=== PATIENT | female | born 1955 | race Caucasian/White ===

== ENCOUNTER → 2016-06-06 | Outpatient (CLI) | payer BC ==
[~2016-06-06] MED LIST: ASPIRIN PO; BENZONATATE PO; LEVAQUIN750 M1 PO; LOSARTAN-HCTZ1 EACH PO; MELOXICAM15 MG PO; MOTRIN400 MG; NO MEDICATIONS
--- NOTE | ~2016-06-06 | US37 ---
[facility] A Service of [facility] & [facility] RADIOLOGY TEXT RESULTS PATIENT: ARSLAN GEE LOCATION: SNIV : 55 UNIT #: [id number] AGE: [address]: Tiff Russell MD SEX: F ORDER DR: [id number] [address] [address] [id number] O MR#: [id number] Acc #: [id number] NAME: ARSLAN GEE : 1955 SEX: F STUDY DATE/TIME: 06/06/2016 13:46 UNIT: SNIV ROOM: STUDY DESCRIPTION: US Carotid W/Doppler Bilateral Attending Physician: Tiff Russell M.D. Referring Physician: Tiff Russell M.D. Ordering Physician: Tiff Russell M.D. Primary Care Physician: Tiff Russell M.D. MEDICAL IMAGING REPORT This report is preliminary unless electronic signature is present. EXAM Carotid duplex scan, 06/06/2016. HISTORY Blurred vision, vertigo. FINDINGS The right common carotid artery has no significant plaque. There is only a small amount of heterogeneous plaque in the right carotid bulb which extends up into the proximal internal carotid artery. Peak systolic velocity in the mid right internal carotid artery is 92 cm/sec, with an end diastolic velocity of 31 cm/sec. The ICA:CCA ratio on the right is 1.5. Peak systolic velocity in the right external carotid artery is 100 cm/sec. The right vertebral artery is patent with antegrade flow. The left common carotid artery has no plaque. There is only a small amount of heterogeneous plaque in the left carotid bulb. The left internal carotid artery is very tortuous, but does not appear stenotic. Peak systolic velocity in the distal left internal carotid artery is 168 cm/sec, with an end diastolic velocity of 61 cm/sec. the ICA:CCA ratio on the left is 2.6. Peak systolic velocity in the left external carotid artery is 65 cm/sec. The left vertebral artery is patent with antegrade flow. Incidental node is made of a heterogeneous thyroid nodule in the left thyroid lobe, which measures 1.4 x 1.29 x 1.6 cm. IMPRESSION Small amount of plaque, but no significant stenosis (less than 50%) in the right internal carotid artery. There are elevated velocities in the left internal carotid artery, consistent with 50% to 69% stenosis, but the elevated velocities appear to be due to tortuosity rather than significant STS. [facility] A Service of [facility] & [facility] RADIOLOGY TEXT RESULTS PATIENT: ARSLAN GEE LOCATION: [facility] : 55 UNIT #: [id number] AGE: [address]: Tiff Russell MD SEX: F ORDER DR: stenosis. No significant stenosis of the external carotid arteries on either side. Patent vertebral arteries bilaterally with antegrade flow. 1.6-cm left thyroid nodule. Dictated by... Sim Andino M.D. THIS IS AN ELECTRONICALLY VERIFIED REPORT Sim Andino M.D. at 06/07/2016 7:43 AM KELSEY/nita TD: 06/06/2016 16:56 JOB #: [id number] MEDICAL IMAGING REPORT Page 1 of 1
--- NOTE | ~2016-06-06 | MR17 ---
[facility] A Service [facility] RADIOLOGY TEXT RESULTS PATIENT: ARSLAN GEE LOCATION: SNIV : 55 UNIT #: [id number] AGE: [address]: Tiff Russell MD SEX: F ORDER DR: [id number] [place] [id number] O MR#: [id number] Acc #: [id number] NAME: ARSLAN GEE : 1955 SEX: F STUDY DATE/TIME: 06/06/2016 15:14 UNIT: SNIV ROOM: STUDY DESCRIPTION: MR Brain WWo Contrast Attending Physician: Tiff Russell M.D. Referring Physician: Tiff Russell M.D. Ordering Physician: Tiff Russell M.D. Primary Care Physician: Tiff Russell M.D. MRI CENTER REPORT This report is preliminary unless electronic signature is present. EXAM Brain MRI with and without contrast. DATE 06/06/2016 PROCEDURE Routine brain MRI with and without contrast. COMPARISON None CLINICAL HISTORY 2-week history of headache and dizziness and nausea with presyncope. FINDINGS The brain is structurally normal. There is no restricted diffusion. There is no evidence of acute or chronic hemorrhage. There is no hydrocephalus or extraaxial fluid collection. Bone marrow signal is normal. Brain parenchymal signal is normal. Normal flow voids are seen in the cerebral vessels. The extracranial soft tissues are unremarkable. Postcontrast images show no evidence of intracranial mass or abnormal enhancement. IMPRESSION Normal brain MRI with and without contrast. Dictated by... Emre Farooq M.D. [facility] A Service [facility] RADIOLOGY TEXT RESULTS PATIENT: ARSLAN GEE LOCATION: [facility] : 55 UNIT #: [id number] AGE: [address]: Tiff Russell MD SEX: F ORDER DR: THIS IS AN ELECTRONICALLY VERIFIED REPORT Emre Farooq M.D. at 06/08/2016 4:52 PM TEV/qingw TD: 06/08/2016 10:24 JOB #: [id number] MRI CENTER REPORT Page 1 of 1
--- NOTE | ~2016-06-06 | MR122 ---
[facility] A Service of [facility] RADIOLOGY TEXT RESULTS PATIENT: ARSLAN GEE LOCATION: [facility] : 55 UNIT #: [id number] AGE: [address]: Tiff Russell MD SEX: F ORDER DR: [id number] [address] [address] [id number] O MR#: [id number] Acc #: [id number] NAME: ARSLAN GEE : 1955 SEX: F STUDY DATE/TIME: 06/06/2016 15:05 UNIT: SNIV ROOM: STUDY DESCRIPTION: MR MRA Head Wo Contrast Attending Physician: Tiff Russell M.D. Referring Physician: Tiff Russell M.D. Ordering Physician: Tiff Russell M.D. Primary Care Physician: Tiff Russell M.D. MRI CENTER REPORT This report is preliminary unless electronic signature is present. EXAM Head MRA, 06/06/2016 PROCEDURE Axial [id number] head MRA with three-dimensional reformats. COMPARISON None CLINICAL HISTORY 2-week history of dizziness, headaches, nausea and presyncope. FINDINGS Both internal carotid AND vertebral arteries and the basilar artery are patent. There is a type left posterior cerebral origin. There is no evidence of intracranial aneurysm or flow-limiting stenosis and there is symmetric vascularity in the anterior, middle and posterior cerebral distributions. IMPRESSION Normal head MRA. Dictated by... Emre Farooq M.D. THIS IS AN ELECTRONICALLY VERIFIED REPORT Emre Farooq M.D. at 06/08/2016 4:51 PM VINCENT/agata TD: 06/08/2016 12:02 JOB #: [id number] [facility] A Service of [facility] RADIOLOGY TEXT RESULTS PATIENT: ARSLAN GEE LOCATION: [facility] : 55 UNIT #: [id number] AGE: [address]: Tiff Russell MD SEX: F ORDER DR: MRI CENTER REPORT Page 1 of 1
[2016-06-06 16:10] LABS: POC - CREATININE 1.05 mg/dL (0.44-1.03)
== END | disposition home or self-care (01) ==
LOC: SNIV 13:05
PROVIDERS: Internal Medicine
DX: R51 Headache (principal); R42 Dizziness and giddiness; H53.8 Other visual disturbances; I65.21 Occlusion and stenosis of right carotid artery; E04.1 Nontoxic single thyroid nodule
CPT/HCPCS: 70544; 70553; 82565; 93880; A9581

== ENCOUNTER → 2016-10-26 | Outpatient (CLI) | payer BC ==
--- NOTE | ~2016-10-26 | BD1 ---
[facility] A Service of [facility] & [facility] RADIOLOGY TEXT RESULTS PATIENT: ARSLAN GEE LOCATION: [facility] : 55 UNIT #: [id number] AGE: [address]: Tiff Russell MD SEX: F ORDER DR: [id number] [address] [address] [id number] O MR#: [id number] Acc #: [id number] NAME: ARSLAN GEE : 1955 SEX: F STUDY DATE/TIME: 10/26/2016 8:42 UNIT: [facility] ROOM: STUDY DESCRIPTION: BD Dexa Bone Dens 1+ Site Attending Physician: Tiff Russell M.D. Referring Physician: Tiff Russell M.D. Ordering Physician: Tiff Russell M.D. Primary Care Physician: Tiff Russell M.D. MEDICAL IMAGING REPORT This report is preliminary unless electronic signature is present. EXAM Bone density, spine and hip, 10/26/2016. HISTORY Screening. Smoker 50 years. Current smoker. FINDINGS Bone density scanning performed upper 4 lumbar vertebral segments and both proximal femurs in 200-pound, 61[age]2-year-old female. No comparisons. L1-L4: Bone mineral density 0.853 g/cm2 for T-score 2.7 standard deviations below mean for reference population normal young individuals and a Z-score 2.3 standard deviations below mean for age-match population. Left femur: Proximal total femoral density 0.919 g/cm2 for T-score 0.7 standard deviations below mean for reference population normal young individuals and Z-score 0.3 standard deviations below mean for age-match population. Left femoral neck bone mineral density 0.704 g/cm2 for T-score 2.4 standard deviations below mean for reference population normal young individuals and a Z-score 1.7 standard deviations below the mean for age-match population. Right proximal femur total bone mineral density 0.884 g/cm2 for T-score 1 standard deviation below mean for a reference population normal young individuals and Z-score 0.6 standard deviations below mean for age-matched population. In the right femoral neck, the bone mineral density is 0.724 g/cm2 for T-score 2.3 standard deviation below mean for a reference population normal young individuals and Z-score of 1.5 standard deviations below mean for age-matched population. IMPRESSION 1. Osteoporosis in the upper 4 lumbar vertebral segments overall. [facility] A Service of [facility] RADIOLOGY TEXT RESULTS PATIENT: ARSLAN GEE LOCATION: [facility] : 55 UNIT #: [id number] AGE: [address]: Tiff Russell MD SEX: F ORDER DR: Patient is felt to be at significantly increased risk for fracture. Treatment options may be considered. Continued surveillance is recommended. Dictated by... Antonio Marie M.D. THIS IS AN ELECTRONICALLY VERIFIED REPORT Antonio Marie M.D. at 10/26/2016 2:30 PM Madeleine TD: 10/26/2016 13:20 JOB #: [id number] MEDICAL IMAGING REPORT Page 1 of 1
--- NOTE | ~2016-10-26 | MY30 ---
[facility] A Service of [facility] RADIOLOGY TEXT RESULTS PATIENT: ARSLAN GEE LOCATION: [facility] : 55 UNIT #: [id number] AGE: [address]: Tiff Russell MD SEX: F ORDER DR: [id number] [address] [address] [id number] O MR#: [id number] Acc #: [id number] NAME: ARSLAN GEE : 1955 SEX: F STUDY DATE/TIME: 10/26/2016 8:55 UNIT: [facility] ROOM: STUDY DESCRIPTION: MY SCREEN ALMA BILAT DIGITAL Attending Physician: Tiff Russell M.D. Referring Physician: Tiff Russell M.D. Ordering Physician: Tiff Rusesll M.D. Primary Care Physician: Tiff Russell M.D. MEDICAL IMAGING REPORT This report is preliminary unless electronic signature is present. EXAM Bilateral digital screening mammogram with CAD 10/26/2016 HISTORY Previous history of 2 right benign breast biopsies in 2013, excisional biopsy in 2014. No personal or family history of breast cancer. No current complaints. COMPARISON Bilateral screening mammogram 09/26/2015, 03/19/2014, 01/12/2013. FINDINGS CC and MLO views were obtained of each breast utilizing digital technique and reviewed with an FDA-approved CAD device. Heterogeneously dense fibroglandular tissue is present bilaterally which can limit sensitivity of mammography. Linear marker was placed over the right breast denoting the surgical scar. No new or suspicious nodule, architectural distortion or clustered microcalcification is seen. IMPRESSION BIRADS 2. Benign findings. Routine bilateral screening mammogram is recommended in 1 year. Patients over the age of 40 are entered into a reminder system with target due date for the next mammogram. A result letter will also be sent to the patient. BIRADS: 2 Benign finding Dictated by... [facility] RADIOLOGY TEXT RESULTS PATIENT: ARSLAN GEE LOCATION: [facility] : 55 UNIT #: [id number] AGE: [address]: Tiff Russell MD SEX: F ORDER DR: Ofe Hanna M.D. THIS IS AN ELECTRONICALLY VERIFIED REPORT Ofe Hanna M.D. at 10/29/2016 8:47 AM TU/eugenie TD: 10/26/2016 12:27 JOB #: [id number] MEDICAL IMAGING REPORT Page 1 of 1
== END | disposition home or self-care (01) ==
LOC: SMAM 08:02
DX: Z12.31 Encounter for screening mammogram for malignant neoplasm of breast (principal); Z13.820 Encounter for screening for osteoporosis; M81.0 Age-related osteoporosis without current pathological fracture; Z78.0 Asymptomatic menopausal state; Z91.89 Other specified personal risk factors, not elsewhere classified; Z98.890 Other specified postprocedural states
CPT/HCPCS: 77080; G0202